=== PATIENT | male | born 1955 | race Caucasian/White ===

== ENCOUNTER → 2023-12-29 13:47 | Outpatient (REF) | payer MEDICARE, OTHER, SELFPAY | LOC: RCS 13:47 | PROVIDERS: ATTENDING PHYSICIAN Internal Medicine Cardiovascular Disease; FAMILY PHYSICIAN Family Medicine | DX: I35.1 Nonrheumatic aortic (valve) insufficiency (principal) | CPT/HCPCS: 93306 ==